=== PATIENT | male | born 1955 ===

== ENCOUNTER 2020-08-27 05:51 | Day surgery (SDC) | payer OTHER ==
[2020-08-27] MEDS ORDERED: NEURONTIN600 M1 PO (11:47)
[2020-08-27] MEDS ORDERED: COLACE100 MG PO (11:47)
[2020-08-27] MEDS ORDERED: PERCOCET 5-3251 EACH PO (11:47)
== END 2020-08-27 15:45 | disposition home or self-care (01) ==
LOC: CIR.AMB 05:51
PROVIDERS: ATTEND Surgery
DX: K40.91 Unilateral inguinal hernia, without obstruction or gangrene, recurrent (principal); K40.90 Unilateral inguinal hernia, without obstruction or gangrene, not specified as recurrent; Z20.822 Contact with and (suspected) exposure to COVID-19